=== PATIENT | male | born 1955 | race Caucasian/White ===

== ENCOUNTER 2019-05-29 12:46 | Emergency (ER) | payer OTHER ==
[~2019-05-29] VITALS: Ht 182.9 cm; Wt 100.0 kg
[~2019-05-29 12:46] MED LIST: IBUP-2070 PO; VENL-193 PO
[2019-05-29] MEDS ORDERED: EPINEPHrine 1:1,000 [1 MG/ML] AMP ONE (12:52)
[2019-05-29] MEDS ORDERED: DiphenhydrAMINE HCL 50 MG/ML VIAL ONE (12:52)
[2019-05-29] MEDS ORDERED: MethylPREDNISolone SOD SUCC 125 MG/2 ML VIAL ONE (12:52)
[2019-05-29] MEDS ORDERED: FAMOTIDINE 10 MG/ML 2 ML VIAL ONE (12:52)
[2019-05-29] MEDS ORDERED: DiphenhydrAMINE HCL 50 MG/ML VIAL IVP STA (13:24)
[2019-05-29] MEDS ORDERED: ONDANSETRON HCL 4 MG/2 ML VIAL IVP ONE (13:30)
[2019-05-29] MEDS ORDERED: MethylPREDNISolone SOD SUCC 125 MG/2 ML VIAL IVP ONE (13:30)
[2019-05-29] MEDS ORDERED: EPINEPHrine 1:1,000 [1 MG/ML] AMP IM ONE (13:30)
[2019-05-29] MEDS ORDERED: FAMOTIDINE 10 MG/ML 2 ML VIAL IVP ONE (13:30)
[2019-05-29 16:45] VITALS: BP 123/79
== END 2019-05-29 16:45 | disposition home or self-care (01) ==
LOC: EMS 12:47
DX: T78.00XA Anaphylactic reaction due to unspecified food, initial encounter (principal); K21.9 Gastro-esophageal reflux disease without esophagitis; Y92.89 Other specified places as the place of occurrence of the external cause
CPT/HCPCS: 96372; 96374; 96375; 99283; J0171; J1200; J2405; J2930; J3490